=== PATIENT | female | born 1975 | race Caucasian/White ===

== ENCOUNTER 2018-07-25 05:32 | Inpatient (IN) | payer OTHER ==
[2018-07-25] MEDS ORDERED: ROCURONIUM 50 MG INJ (07:00)
[2018-07-25] MEDS ORDERED: CEFAZOLIN 1 GM INJ (07:00)
[2018-07-25] MEDS ORDERED: SUCCINYLCHOLINE CHLORIDE 100 MG/5 ML SYG IV (07:00)
[2018-07-25] MEDS ORDERED: GLYCOPYRROLATE 0.4 MG INJ (07:00)
[2018-07-25] MEDS ORDERED: NEOSTIGMINE 3 MG/3 ML SYRINGE (07:00)
[2018-07-25] MEDS ORDERED: DESFLURANE 15 MIN (07:00)
[2018-07-25] MEDS ORDERED: LIDOCAINE 2% (SDV) 5 ML INJ (07:00)
[2018-07-25] MEDS ORDERED: PROPOFOL 200 MG INJ (07:00)
[2018-07-25] MEDS ORDERED: FENTAnyl 50 MCG/ML VIAL (07:28)
[2018-07-25] MEDS ORDERED: ROPIVACAINE 0.5 % 30 ML VIAL (07:38)
[2018-07-25] MEDS ORDERED: MEPERIDINE 25 MG INJ IV (08:00)
[2018-07-25] MEDS ORDERED: ALBUTEROL 0.083% (NEB) 2.5 MG/3 ML AMP HHN (08:00)
[2018-07-25] MEDS ORDERED: HYDROmorphONE 1 MG/5 ML IV SYRINGE IV (08:00)
[2018-07-25] MEDS ORDERED: FENTAnyl 50 MCG/ML VIAL IV ×2 (08:00)
[2018-07-25] MEDS ORDERED: LEVALBUTEROL (NEB) 0.63 MG/3 ML AMP HHN (08:00)
[2018-07-25] MEDS ORDERED: LABETALOL HCL 20MG INJ IV (08:00)
[2018-07-25] MEDS ORDERED: DIPHENHYDRAMINE 50 MG INJ IV (08:00)
[2018-07-25] MEDS ORDERED: METOCLOPRAMIDE 10 MG INJ IV (08:00)
[2018-07-25] MEDS ORDERED: PROVENTIL HFA 6.7GM INHALER (08:03)
[2018-07-25] MEDS: HYDROmorphONE 1 MG/5 ML IV SYRINGE IV ×2 (10:40→11:18)
[2018-07-25] MEDS: ONDANSETRON 4 MG INJ IV ×2 (10:40→22:31)
[2018-07-25] MEDS: LACTATED RINGER'S 1,000 ML IV ×2 (12:12→20:40)
[2018-07-25] MEDS: HYDROmorphONE 2 MG/ML SYG IV ×3 (12:47→22:33)
[2018-07-26] MEDS: ONDANSETRON 4 MG INJ IV ×3 (04:02→19:51)
[2018-07-26] MEDS: HYDROmorphONE 2 MG/ML SYG IV ×2 (04:04→09:16)
[2018-07-26] MEDS: LACTATED RINGER'S 1,000 ML IV ×3 (04:07→21:30)
[2018-07-26 05:29] LABS: ADD MAN DIFF? NO
[2018-07-26 05:42] LABS: BASOPHILS % 0.2 % (0.0-2.0); EOSINOPHILS % 0.1 % (0.0-7.0); HEMATOCRIT 32.5 % (37.0-47.0); HEMOGLOBIN 10.1 g/dl (12.0-16.0); LYMPHOCYTES # 1.6 10^3/ul (0.8-2.9); MEAN CORPUSCULAR HEMOGLOBIN 26.7 pg (29.0-33.0); MEAN CORPUSCULAR HGB CONC 31.1 g/dl (32.0-37.0); MEAN PLATELET VOLUME 10.3 fl (7.4-10.4); MONOCYTES % 7.9 % (0.0-11.0); NEUTROPHIL # 9.4 10^3/ul (1.6-7.5); NEUTROPHILS % 78.3 % (39.0-77.0); PLATELET COUNT 472 10^3/UL (140-415); RED BLOOD COUNT 3.78 10^6/ul (4.20-5.40); RED CELL DISTRIBUTION WIDTH 18.6 % (11.5-14.5)
[2018-07-26] MEDS: BISACODYL 10 MG SUPP PR ×2 (06:04→13:19)
[2018-07-26] MEDS: MAGNESIUM HYDROXIDE 30ML CUP PO ×2 (06:04→13:18)
[2018-07-26 06:16] LABS: ALBUMIN 3.6 g/dl (3.3-4.9); ALBUMIN/GLOBULIN RATIO 1.12; ALKALINE PHOSPHATASE 86 IU/L (42-121); ANION GAP 7 (5-13); ASPARTATE AMINO TRANSFERASE 71 IU/L (15-46); BILIRUBIN,INDIRECT 0.3 mg/dl (0-1.1); BILIRUBIN,TOTAL 0.3 mg/dl (0.2-1.3); BLOOD UREA NITROGEN 9 mg/dl (7-20); CALCIUM 8.7 mg/dl (8.4-10.2); CARBON DIOXIDE 29 mmol/L (21-31); CHLORIDE 102 mmol/L (97-110); Estimated GFR > 60 mL/min (>60); GLUCOSE 135 mg/dl (70-220); POTASSIUM 3.7 mmol/L (3.5-5.1); SODIUM 138 mmol/L (135-144); TOTAL PROTEIN 6.8 g/dl (6.1-8.1)
[2018-07-26 06:18] LABS: ALANINE AMINOTRANSFERASE 83 IU/L (13-69)
[2018-07-26] MEDS ORDERED: HYDROCODONE/APAP (5/325) TAB PO (10:30)
[2018-07-26] MEDS ORDERED: IBUPROFEN 800 MG TAB PO (10:30)
[2018-07-26] MEDS: HYDROCODONE/APAP (5/325) TAB PO ×2 (13:19→19:51)
[2018-07-27 04:48] LABS: ADD MAN DIFF? NO
[2018-07-27 04:51] LABS: BASOPHILS % 0.2 % (0.0-2.0); EOSINOPHILS % 0.2 % (0.0-7.0); HEMATOCRIT 29.7 % (37.0-47.0); LYMPHOCYTES # 1.8 10^3/ul (0.8-2.9); LYMPHOCYTES % 14.5 % (15.0-51.0); MEAN CORPUSCULAR HEMOGLOBIN 26.3 pg (29.0-33.0); MEAN CORPUSCULAR HGB CONC 30.3 g/dl (32.0-37.0); MEAN CORPUSCULAR VOLUME 86.8 fl (82.0-101.0); MEAN PLATELET VOLUME 9.8 fl (7.4-10.4); MONOCYTE # 0.9 10^3/ul (0.3-0.9); MONOCYTES % 7.4 % (0.0-11.0); NEUTROPHIL # 9.5 10^3/ul (1.6-7.5); NEUTROPHILS % 77.2 % (39.0-77.0); PLATELET COUNT 377 10^3/UL (140-415); RED BLOOD COUNT 3.42 10^6/ul (4.20-5.40); RED CELL DISTRIBUTION WIDTH 18.2 % (11.5-14.5)
[2018-07-27 04:51] LABS: WHITE BLOOD COUNT 12.3 10^3/ul (4.8-10.8)
[2018-07-27] MEDS: LACTATED RINGER'S 1,000 ML IV ×2 (05:03→12:57)
[2018-07-27] MEDS: HYDROCODONE/APAP (5/325) TAB PO ×2 (05:03→12:57)
[2018-07-27] MEDS: ONDANSETRON 4 MG INJ IV (12:57)
== END 2018-07-27 19:52 | disposition home or self-care (01) | DRG 743 ==
LOC: REC 05:32 → MS1 07-26 22:27
PROVIDERS: Obstetrics & Gynecology
PROC: 0UT90ZL Resection of Uterus, Supracervical, Open Approach (ICD-10-PCS; principal; 2018-07-25 07:26)
DX: D25.9 Leiomyoma of uterus, unspecified (principal); N92.0 Excessive and frequent menstruation with regular cycle; I10 Essential (primary) hypertension; E66.01 Morbid (severe) obesity due to excess calories; Z68.39 Body mass index [BMI] 39.0-39.9, adult; G89.29 Other chronic pain; R10.2 Pelvic and perineal pain; N83.202 Unspecified ovarian cyst, left side; N81.89 Other female genital prolapse; N80.1 Endometriosis of ovary; N80.0 Endometriosis of uterus; N70.11 Chronic salpingitis
CPT/HCPCS: 80053; 84702; 85025; 86850; 86900; 86901; 86920; 87086; 88305; 88331